=== PATIENT | female | born 1940 | race Caucasian/White ===

== ENCOUNTER 2021-09-13 21:10 | Emergency (ER) | payer MEDICARE, BC ==
[~2021-09-13 21:10] MED LIST: ATORVASTATIN CA40 MG PO; CLARITIN10 M2 PO; DAILY VALUE1 EACH PO; EFFEXOR XR37.5 MG PO; FENOFIBRATE160 MG PO; FOLIC ACID 1 MG1 MG PO; GLIPIZIDE ER10 MG PO; GLUCOPHAGE1000 MG PO; GLUCOTROL XL10 MG PO; HYDROCHLOROTH12.5 MG PO; IBUPROFEN800 MG PO; LORTAB 5-325 M1 EACH PO; LOSARTAN POTAS100 MG PO; LOSARTAN-HCTZ1 EACH PO; MULTI VIT PO; NORCO 5-325 TA1 EACH PO; NORCO 7.5-3251 EACH PO; NORVASC5 MG PO; PERCOCET 7.5-31 EACH PO; PRAVACHOL40 MG PO; PROBIOTIC1 EAC1 PO; PROBIOTIC1 EAC3 PO; REMICADE I100 MG/VIA IV; ULTRAM50 MG PO; VENLAFAXINE H37.5 M2 PO; VENLAFAXINE HCL75 M2 PO; VITAMIN D 40400 UNIT PO; Voltaren Gel 1 % TOP
[2021-09-13 21:35] LABS: HEMOGLOBIN 13.4 gm/dl (12.3-15.3); RED BLOOD COUNT 4.44 M/UL (4.00-5.10); WHITE BLOOD COUNT 10.3 K/UL (4.5-11.0)
[2021-09-13 21:57] LABS: BUN/CREATININE RATIO 32 (0-10)
== END 2021-09-14 04:58 | disposition short-term general hospital (02) ==
LOC: ER1 21:10
PROVIDERS: Emergency Medicine
DX: G45.9 Transient cerebral ischemic attack, unspecified (principal); I10 Essential (primary) hypertension; E11.9 Type 2 diabetes mellitus without complications; Z20.822 Contact with and (suspected) exposure to COVID-19
CPT/HCPCS: 0240U; 70450; 70496; 70498; 80053; 80307; 81001; 82140; 82962; 83690; 84484; 85025; 85610; 85730; 93005; 96374; 99285; J0360; J7040; Q9967

== ENCOUNTER → 2022-03-21 | Outpatient (CLI) | payer MEDICARE, BC | LOC: EXRD 03-12 10:30 | DX: Z53.9 Procedure and treatment not carried out, unspecified reason (principal) | CPT/HCPCS: 77080 ==